=== PATIENT | male | born 1940 | race Hispanic/Latino ===

== ENCOUNTER 2019-10-05 08:08 | Day surgery (SDC) | payer OTHER ==
[2019-10-02 13:45] LABS: BASOPHILS % (AUTO) 0.6 % (0.0-5.0); EOSINOPHILS % (AUTO) 5.6 % (0.0-8.0); HEMATOCRIT 39.6 % (42-54); LYMPHOCYTES % (AUTO) 34.9 % (21.0-51.0); MEAN CORPUSCULAR HEMOGLOBIN 27.3 pg (27.0-33.0); MEAN CORPUSCULAR HGB CONC 31.1 g/dL (32.0-36.0); MONOCYTES % (AUTO) 11.4 % (3.0-13.0); NEUTROPHILS % (AUTO) 47.3 % (40.0-77.0); PLATELET COUNT (AUTO) 282 K/uL (130-400); RED CELL DISTRIBUTION WIDTH 13.7 % (11.0-15.5)
[2019-10-02 13:50] LABS: APPEARANCE,URINE CLOUDY (CLEAR); BILIRUBIN,URINE SMALL (NEGATIVE); COLOR,URINE YELLOW (YELLOW); GLUCOSE, URINE (UA) NEGATIVE (NEGATIVE); KETONES,URINE 5 mg/dL (NEGATIVE); LEUKOCYTE ESTERASE ,URINE MODERATE (NEGATIVE); NITRATE,URINE POSITIVE (NEGATIVE); OCCULT BLOOD,URINE MODERATE (NEGATIVE); PH,URINE 5.5 (5.0-8.0); PROTEIN,URINE TRACE mg/dL (NEGATIVE); UROBILINOGEN,URINE 0.2 mg/dL (0.2-1.0)
[2019-10-02 13:53] LABS: CREATININE 1.1 mg/dL (0.5-1.5); POTASSIUM 4.6 mmol/L (3.5-5.1)
[2019-10-02 14:00] VITALS: BP 137/76
[2019-10-02 14:09] LABS: BACTERIA,URINE Many /HPF (None Seen); SQUAMOUS EPITHELIAL CELL,UR Few /HPF (0-2); WBC,URINE TNTC /HPF (0-1)
[2019-10-02 14:31] LABS: PROTHROMBIN TIME 10.5 SEC (9.6-11.6)
[~2019-10-05] VITALS: Ht 166.4 cm; Wt 63.4 kg
[2019-10-05] VITALS (14 sets, daily range): BP systolic 119–168; BP diastolic 47–110
[~2019-10-05 08:08] MED LIST: ATOR20TA65 PO; CARB100T4 PO; DOXA2TAB2 PO; FAMO20TA8 PO; GABA-529 PO; GENTAMICIN SULFATE 300 MG in SODIUM CHLORIDE 0.9% 100 ML IV SCH; LOSA50TA64 PO
[2019-10-05] MEDS: CEFTRIAXONE SODIUM 1 GM IVP SCH ×2 (09:00→11:15)
[2019-10-05] MEDS ORDERED: LACTATED RINGERS 1000ML 1,000 ML IV ONE (09:04)
[2019-10-05] MEDS ORDERED: ASPI-555 PO (09:07)
[2019-10-05] MEDS ORDERED: ROCURONIUM 10MG/1ML SYR 10 MG/ML ML ONE (11:21)
[2019-10-05] MEDS ORDERED: PROPOFOL 10 MG/ML 20ML VIAL IV ONE (12:44)
[2019-10-05] MEDS ORDERED: GLYCOPYRROLATE 1 MG/5 ML SYRINGE ONE (12:45)
[2019-10-05] MEDS ORDERED: NEOSTIGMINE 5MG/5ML SYR IV ONE (12:45)
== END 2019-10-05 15:00 | disposition home or self-care (01) ==
LOC: DAH 08:08
PROVIDERS: ATTEND Urology
DX: N40.1 Benign prostatic hyperplasia with lower urinary tract symptoms (principal); N39.0 Urinary tract infection, site not specified; D36.7 Benign neoplasm of other specified sites; I10 Essential (primary) hypertension; E78.5 Hyperlipidemia, unspecified; F32.9 Major depressive disorder, single episode, unspecified; F03.90 Unspecified dementia, unspecified severity, without behavioral disturbance, psychotic disturbance, mood disturbance, and anxiety; Z98.890 Other specified postprocedural states; Z86.73 Personal history of transient ischemic attack (TIA), and cerebral infarction without residual deficits; Z79.82 Long term (current) use of aspirin; Z79.899 Other long term (current) drug therapy; Z82.49 Family history of ischemic heart disease and other diseases of the circulatory system; Z83.3 Family history of diabetes mellitus
CPT/HCPCS: 36415; 52648; 71045; 80048; 81001; 85025; 85610; 85730; 87077; 87088; 87186; 93005; 96365; A4213; A4215; A4221; A4222; A4223 ×2; A4354; A4663; A6260; C1758; J0696; J1580; J2704; J2710; J3490; J7030; J7120